=== PATIENT | female | born 1930 | race Caucasian/White ===

== ENCOUNTER 2018-08-31 11:01 | Inpatient (IN) | payer OTHER ==
[~2018-08-31] VITALS: Ht 157.5 cm; Wt 63.5 kg
[2018-08-31 11:02] VITALS: BP 115/54
--- NOTE | 2018-08-31 11:08 | NUR ---
PT'S SON STATES THAT EMT'S ASKED THEM IF HE NOTED DROOPING TO PT;S FACE. SON STATED HE DID NOT NOTICE ANYTHING DIFFRENT. SON STATES SHE DOES LOOK FLUSH IN THE FACE SINCE COMING IN
--- NOTE | 2018-08-31 11:59 | NUR ---
IV PLACED IN PT, WRAPPED IN COBAN. PT WAS ABLE TO REMOVE COBAN AND REMOVED IV BEFORE INTERVENTION
[2018-08-31 12:01] LABS: ABSOLUTE NEUTROPHILS 5.2 thou/uL (1.4-8.2); BASOPHILS 1.1 % (0.0-2.0); HEMATOCRIT 40.9 % (37.0-47.0); HEMOGLOBIN 13.8 gm/dL (12.0-15.0); LYMPHOCYTES 10.7 % (24.0-44.0); MCH 32.1 pg (26.0-34.0); MCHC 33.6 g/dL (28.0-37.0); MCV 95.5 fL (80.0-100.0); MONOCYTES 7.6 % (1.0-8.0); PLATELET COUNT 242 thou/uL (150-400); POLYS 79.6 % (36.0-66.0); RBC 4.29 mil/uL (4.20-5.00); RDW 13.4 % (10.5-14.5); WBC 6.5 thou/uL (4.0-11.0)
[2018-08-31 12:03] LABS: URINE CLARITY CLOUDY; URINE COLOR YELLOW; URINE GLUCOSE-RANDOM* NEGATIVE (Negative); URINE KETONES TRACE (Negative); URINE PROTEIN (DIPSTICK) TRACE (Negative); URINE SPECIFIC GRAVITY > 1.030 (1.005-1.035)
[2018-08-31 12:04] LABS: CASTS None Seen /LPF (None Seen); CRYSTALS None Seen /LPF (None Seen); URINE BILIRUBIN NEGATIVE (Negative); URINE BLOOD 2+ (Negative); URINE LEUKOCYTES-REFLEX 2+ (Negative); URINE NITRITE-REFLEX NEGATIVE (Negative); URINE UROBILINOGEN 0.2 E.U./dl (0.2-1.0)
[2018-08-31 12:05] LABS: BACTERIA-REFLEX 1-9 Few /HPF (None Seen); SQUAMOUS 0-3 Few /LPF (0-3); URINE RBC 3-10 Few /HPF (0-2); URINE WBC-REFLEX >25 Many /HPF (0-5); WBC CLUMPS Many (None Seen)
[2018-08-31 12:07] LABS: CALCIUM 8.2 mg/dL (8.5-10.1); CREATININE 0.6 mg/dL (0.6-1.0); POTASSIUM 3.4 mmol/L (3.5-5.1)
[2018-08-31] MEDS ORDERED: TYLENOL325 MG PO (12:11)
[2018-08-31 12:13] LABS: ALBUMIN 2.8 g/dL (3.4-5.0); TOTAL BILIRUBIN 0.7 mg/dL (<0.1-1.0); TOTAL PROTEIN 7.1 g/dL (6.4-8.2)
[2018-08-31] MEDS ORDERED: AQUAPHOR85 GM TP (12:33)
[2018-08-31] MEDS ORDERED: AAA-MED REC COMPLETE PO (12:35)
[2018-08-31] MEDS ORDERED: VISINE15 ML OPHTHALMIC (12:35)
--- NOTE | 2018-08-31 12:40 | NUR ---
SECOND ATTEMPT TO IV IS SUCESSFUL, PT PULLS IT OUT BEFORE IT CAN BE WRAPS CAN BE APPLIED FOR DETERENT.
[2018-08-31 12:47] VITALS: BP 115/54
[2018-08-31 14:14] VITALS: BP 123/59
[2018-08-31 14:36] VITALS: BP 139/45
--- NOTE | 2018-08-31 18:03 | NUR ---
ASSUMED CARE OF PT AT 14:16. ARRIVED TO ROOM IN STABLE CONDITION VIA CART FROM ED. SON - REMINGTON SOUSA - AT BEDSIDE. ASSESSMENT COMPLETED. DROWSY, BUT AROUSABLE. ORIENTED TO SELF ONLY. HX DEMENTIA. DENIES PAIN AT THE TIME. INCONTINENT. TWO PRESSURE WOUNDS NOTED ON BOTTOM, CLAMP JIG ASSEMBLER CONSULTED, BARRIER CREAM APPLIED, PICTURES DOCUMENTED. NO OTHER SKIN CONCERNS NOTED. PATIENT LIVES WITH SON IN A HOUSE, USUALLY GETS AROUND WITH A WALKER. HE REPORTS THE PAST COUPLE DAYS THE PATIENT HAS BEEN INCREASINGLY CONFUSED. ORIENTED TO ROOM AND CALL LIGHT, HIGH FALL RISK PRECAUTIONS IN PLACE. ALL PATIENT BELONGINGS WERE TAKEN HOME BY THE SON, NO VALUABLES NOTED. PHYSICIAN NOTIFIED OF PT, NEW ORDERES IMPLEMENTED. WILL CONTINUE TO MONITOR.
[2018-08-31 23:38] VITALS: BP 114/42
[2018-09-01 00:28] VITALS: BP 138/92
--- NOTE | 2018-09-01 04:04 | NUR ---
Assumed care of pt at 1900. Pt oriented to self only. 2 pressure wounds on bottom. Barrier cream applied. Q2h turn. Pt becomes impulsive when awake and attempts to take iv out. Pt is incontinent. No c/o pain. Fall precautions in place. Will continue to monitor.
[2018-09-01 05:00] VITALS: BP 144/76
[2018-09-01 05:43] LABS: HEMATOCRIT 37.4 % (37.0-47.0); HEMOGLOBIN 12.6 gm/dL (12.0-15.0); MCH 32.1 pg (26.0-34.0); MCHC 33.8 g/dL (28.0-37.0); MCV 94.9 fL (80.0-100.0); RBC 3.94 mil/uL (4.20-5.00); RDW 13.3 % (10.5-14.5); WBC 5.9 thou/uL (4.0-11.0)
[2018-09-01 05:46] LABS: CALCIUM 8.1 mg/dL (8.5-10.1); CREATININE 0.5 mg/dL (0.6-1.0); POTASSIUM 3.7 mmol/L (3.5-5.1)
[2018-09-01 07:28] VITALS: BP 153/80
--- NOTE | 2018-09-01 10:38 | NUR ---
Assess due to notification of pressure ulcers. Pt with dementia, lives with son, has had increased confusion and debility. Pt not able to answer many questions and son not available for comment. Appears well nourished and did states she likes to eat. Staff indicated ate well this am. Will offer vinny bid, otherwise low nutrition risk.
[2018-09-01 11:05] VITALS: BP 153/80
[2018-09-01 16:38] VITALS: BP 139/58
--- NOTE | 2018-09-01 16:39 | NUR ---
PT ADMITTED RELATED TO UTI, SACRAL WOUNDS. CM REVIEWEDF CHART AND SPOKW WITH CARE TEAM. CM MET WITH PT'S SON REMINGTON THIS AFTERNOON. HE INDICATED THAT PT RESIDES WITH HIM IN A SLAB RANCH STYLE HOUSE WITH NO STEPS TO ENTER AND NO STEPS INSIDE. HE INDICATED THAT PT HAD USED A FWW AND A WC IRON ASSORTER. HE INDICATED THEY ALSO HAVE A BSC. HE INDICATED NO HH HX. SON INDICATED THAT PCP FRANCISCO MARINO RETIRED AND PT IS BEING FOLLOWED BY SOMEONE IN HIS OFFICE BUT THEY HAVEN'T SEEN THEM YET. CM INDICATED THAT PT, OT, AND ST WOULD ASSESS PT HERE AND THERAPY AND CARE TEAM WOULD MAKE RECOMMENDATIONS ON POST DC CARE. CM PROVIDED SNF LIST FOR HIS REVIEW. CM TO FOLLOW INDICATED WITH DC PLANNING.
[2018-09-02 04:35] VITALS: BP 131/75
[2018-09-02 05:42] LABS: HEMATOCRIT 38.3 % (37.0-47.0); HEMOGLOBIN 13.2 gm/dL (12.0-15.0); MCHC 34.6 g/dL (28.0-37.0); MCV 95.5 fL (80.0-100.0); RBC 4.01 mil/uL (4.20-5.00); RDW 13.5 % (10.5-14.5); WBC 5.2 thou/uL (4.0-11.0)
[2018-09-02 05:53] LABS: CALCIUM 8.1 mg/dL (8.5-10.1); CREATININE 0.5 mg/dL (0.6-1.0)
--- NOTE | 2018-09-02 06:39 | NUR ---
Assumed pt care at 1900. Pt A&O to self, mostly pleasant and cooperative with nursing cares. Turn and reposition Q2hr and offloading boots in place. Wound care to buttocks
--- NOTE | 2018-09-02 15:41 | NUR ---
CM FOLLOWED UP WITH PT'S SON THIS DAY AND HE INDICATED HE HAD VISITED TWO FACILITIES [facility] AND HE INDICATED HE DIDN'T LIKE THEM. CM PROVIDED SNF LIST AGAIN AND DISCUSSED OTHER FACILTIES NEAR HIS HOME. HE WAS GOING TO GO VISIT SOME FACILITIES NEAR [facility]. CM TO FOLLOW INDICATED WITH DC PLANNING.
[2018-09-02 21:30] VITALS: BP 117/45
--- NOTE | 2018-09-03 02:49 | NUR ---
Pt A&O to self. Cooperative with nursing cares. Q2hr turn and reposition and offloading. Wound care tx completed per orders. Son visited in evening and discussed plans for rehab upon discharge and concerns regarding pt's ability to "bounce back" to baseline. Education and support provided. Pt currently resting in bed, call light within reach, pt will continue to be monitored.
[2018-09-03 03:00] VITALS: BP 129/57
[2018-09-03 07:29] VITALS: BP 176/81
--- NOTE | 2018-09-03 11:27 | HC ---
[facility] [place] [address] CONSULTATION Name: MIRANAD SOUSA Ike Room #: 430-P [facility] [place] ..#: [id number] Admission: 08/31/18 Attend Phys: Apollo Paul MD Discharge: Date of : 31 Report #: [id number] THIS REPORT FOR: //name// CC: Eber Paul DATE OF SERVICE: 09/01/2018 CHIEF COMPLAINT: Stage 3 gluteal pressure ulceration. HISTORY OF PRESENT ILLNESS: This is an 88-year-old female patient who was admitted to [facility] through the Emergency Department. She has a history of dementia. She had increasing weakness and confusion. She is noted to have 2 pressure ulcerations. I have been asked to see her for wound care evaluation. She has been treated for a UTI. The patient cannot provide any information about herself. ALLERGIES: None. PAST MEDICAL HISTORY: Positive for history of dementia. She currently has urinary tract infection. MEDICATIONS: Include Tylenol, Aquaphor, Visine. SOCIAL HISTORY: Negative for alcohol or tobacco. She lives in a nursing care facility. FAMILY HISTORY: Unknown. REVIEW OF SYSTEMS: Unobtainable due to the patient's dementia. PHYSICAL EXAMINATION: VITAL SIGNS: At this time include pulse 67, respiration of 18, blood pressure 144/76, temperature 98.7. GENERAL: This is a chronically ill-appearing patient who appears to be in minimal distress. HEENT: Head normocephalic. Nose and throat are clear. NECK: Supple. LUNGS: Diminished. HEART: Regular rhythm. ABDOMEN: Soft and nontender. EXTREMITIES: The patient's lower extremities demonstrate she has some flexion contractures at the knees and hips, both of her heels appear a bit boggy, although there is some erythema that is blanchable. She has bilateral stage 3 gluteal pressure ulcerations. [facility] [address] [place] [address] CONSULTATION Name: MIRANDA SOUSA Ike Room #: 430-P [facility]#: [id number] Admission: 08/31/18 Attend Phys: Apollo Paul MD Discharge: Date of : 31 Report #: [id number] LABORATORY DATA: Includes sodium 139, potassium 3.7, chloride 104, CO2 29, BUN 6, creatinine 0.5, glucose of 86, albumin is 2.8. White blood cell count is 5.2, hemoglobin is 13.2. Urinalysis is positive for white blood cells and red blood cells consistent with urinary tract infection. CLINICAL IMPRESSION: 1. Stage 3 pressure ulcerations, bilateral buttocks. 2. Dementia. 3. Urinary tract infection. 4. Concern/risk of pressure ulceration on heels. Heels are boggy, although nothing is open and there is blanchable erythema at present. 5. Flexion contractures lower extremities. 6. Moderate protein-calorie malnutrition. RECOMMENDATIONS: At this point in time, we recommend a moisture barrier cream to the gluteal ulceration. She will need a low air loss mattress and q. 2 hour turning and repositioning. Recommend Prevalon boots to both lower extremities. She will need aggressive nutritional support to maximize wound healing. I appreciate being asked to see her in consultation. <ELECTRONICALLY SIGNED> By: Eber Gann MD 09/03/18 [id number] Eber Gann MD /nt
--- NOTE | 2018-09-03 15:35 | NUR ---
WOUND FOLLOW UP: PT. WAS SEEN TODAY BY DR. COHEN AND MYSELF. PT. WOUNDS ARE CLINICALLY BETTER AT THIS TIME. RECOMMENDATIONS: CONTINUE WITH CURRENT PLAN OF CARE. PT. AND STAFF NURSE WERE INSTRUCTED ON PLAN OF CARE.
[2018-09-03 16:53] VITALS: BP 131/69
--- NOTE | 2018-09-03 18:15 | NUR ---
PT ASSESSED AT START OF SHIFT. PT VERY CONFUSED AND CRIES OUT WHEN SHE IS REPOSITIONED. Z-GUARD TO BOTTOM AFTER INCONTINENCE. MODERATED SOFT, BM. ATE FAIRLY WELL WHEN FED AT [facility]. SON HERE FOR A WHILE TO VISIT. IV INFILTRATED AND WAS RESTARTED BY IV AFTER ONE UNSUCCESSFUL ATTEMPT PER RN.
[2018-09-03 19:42] VITALS: BP 128/60
--- NOTE | 2018-09-04 04:03 | NUR ---
Assumed care of pt at 1900. Pt is confused and screams out during repositions. Q2h repositions. Incontinent of b&b. Small bm overnight. Resting comfortably and not c/o when not being repositioned. Pt son states he has 2 skilled facilities in mind for pt to be discharged to, but will go and visit them today, and then decide. 2 buttock wounds still present. Fall precautions in place. Will continue to monitor.
[2018-09-04 04:46] VITALS: BP 142/64
[2018-09-04 08:00] VITALS: BP 140/50
--- NOTE | 2018-09-04 16:55 | NUR ---
CM ATTEMPTED PHONE CALLS TO SON THIS DAY TO ASK WHICH FACILITIES HE WANTS REFERRALS SENT TO. CM REVEIVED NO RESPONSE.
[2018-09-05 05:00] VITALS: BP 127/56
--- NOTE | 2018-09-05 05:38 | NUR ---
Patient demented. Bed rest; denied pain; Son showed concein of patient;s UTI condition, voicing that he wanted the mom to be in hospital for a longer time until the infection was totally cleared up; VSS, afebrile. lab reviewed, will keep monitoring.
[2018-09-05 07:10] VITALS: BP 128/47
[2018-09-05 16:15] VITALS: BP 129/56
[2018-09-05 21:00] VITALS: BP 98/25
--- NOTE | 2018-09-06 00:43 | NUR ---
RADIOLOGY CALLED UP TO THE UNIT STATING THAT PT'S SON REFUSED FOR PT TO GET CXR DONE BC SHE WAS ASLEEP,THIS NURSE TALKED TO THE PT'S SON AND HE STATED THAT HE DIDN'T KNOW THAT STAFF WAS FROM RADIOLOGY SO HE AGREED FOR THE TEST TO BE PERFORMED.REPOSITIONED PT WHILE IN BED,PT SCREAMS OUT LOUD WITH POSITION CHANGES,TYLENOL ADMINISTERED FOR GENERALIZED PAIN.PT COMFORTABLE AND RESTING ON HER BED AT THIS TIME.PRESSURE WOUND ON HER SACRUM CLEANED,Z GUARD APPLIED ORDERED.FALL PRECAUTIIONS IN PLACE,CALL LIGHT WITHIN TREACH.
[2018-09-06 05:00] VITALS: BP 118/58
[2018-09-06 07:11] VITALS: BP 116/45
[2018-09-06 09:59] LABS: HEMATOCRIT 37.6 % (37.0-47.0); HEMOGLOBIN 12.8 gm/dL (12.0-15.0); MCH 32.6 pg (26.0-34.0); MCV 95.7 fL (80.0-100.0); RBC 3.93 mil/uL (4.20-5.00); RDW 13.5 % (10.5-14.5); WBC 5.4 thou/uL (4.0-11.0)
[2018-09-06 10:07] LABS: CALCIUM 8.2 mg/dL (8.5-10.1); CREATININE 0.6 mg/dL (0.6-1.0); MAGNESIUM 2.2 mg/dL (1.8-2.4); POTASSIUM 3.4 mmol/L (3.5-5.1)
[2018-09-06 15:45] VITALS: BP 137/61
[2018-09-06 20:40] VITALS: BP 134/63
[2018-09-07 03:45] VITALS: BP 122/66
[2018-09-07 03:48] LABS: CALCIUM 8.1 mg/dL (8.5-10.1); CREATININE 0.5 mg/dL (0.6-1.0); MAGNESIUM 2.3 mg/dL (1.8-2.4); POTASSIUM 3.6 mmol/L (3.5-5.1)
[2018-09-07 03:58] LABS: HEMATOCRIT 34.9 % (37.0-47.0); HEMOGLOBIN 11.6 gm/dL (12.0-15.0); MCH 32.1 pg (26.0-34.0); MCHC 33.4 g/dL (28.0-37.0); MCV 96.2 fL (80.0-100.0); RBC 3.63 mil/uL (4.20-5.00); RDW 13.4 % (10.5-14.5); WBC 6.4 thou/uL (4.0-11.0)
--- NOTE | 2018-09-07 07:48 | NUR ---
PT HAD A LOOSE BM THIS SHIFT X1.REPOSITIONED WHILE IN BED,SCREAMS AND CURSES WITH POSITION CHANGES.ESTRELLITA CARE WITH CHANGES.PT ALERT TO SELF.REPORT TO AM NURSE.
[2018-09-07 07:50] VITALS: BP 118/66
--- NOTE | 2018-09-07 12:12 | NUR ---
Following for d/c planning. Called pt's son and left message. Will await return call re: choice of d/c.
[2018-09-07 16:15] VITALS: BP 123/62
--- NOTE | 2018-09-07 17:26 | NUR ---
PT ASSESSED AT START OF SHIFT. PT CALM AND COOPERATIVE BUT BECOMES FRIGHTENED WHEN REPOSITIONED. NEEDS TO BE FED AND EATS FAIR. MEDS NEED TO BE CRUSHED OR SHE TAKES THEM OUT OF HER MOUTH. TURNED Q 2HRS. Z-GUARD TO BOTTOM AFTER URINATION.
[2018-09-07 19:36] VITALS: BP 114/58
[2018-09-08 04:24] VITALS: BP 117/72
[2018-09-08 05:38] LABS: HEMATOCRIT 35.8 % (37.0-47.0); HEMOGLOBIN 12.2 gm/dL (12.0-15.0); MCH 32.9 pg (26.0-34.0); MCHC 34.1 g/dL (28.0-37.0); MCV 96.7 fL (80.0-100.0); RBC 3.7 mil/uL (4.20-5.00); RDW 13.3 % (10.5-14.5); WBC 5.7 thou/uL (4.0-11.0)
[2018-09-08 05:46] LABS: CALCIUM 8.1 mg/dL (8.5-10.1); CREATININE 0.5 mg/dL (0.6-1.0); MAGNESIUM 2.2 mg/dL (1.8-2.4)
[2018-09-08 07:15] VITALS: BP 114/51
[2018-09-08 07:34] VITALS: BP 114/51
--- NOTE | 2018-09-08 09:37 | NUR ---
WOUND FOLLOW UP: PT. WAS SEEN TODAY BY DR. RAMIREZ AND MYSELF. PT. WOUNDS ARE STABLE AT THIS TIME AND RESPONDING WELL TO CURRENT THERAPY. RECOMMENDATIONS: CONTINUE WITH CURRENT PLAN OF CARE. PT. AND STAFF NURSE WERE INSTRUCTED ON PLAN OF CARE.
--- NOTE | 2018-09-08 10:44 | NUR ---
1005, PT RECEIVED A COMPLETE BATH. INSTRUCTOR AND STUDENT NURSE NOTICED REDNESS UNDER BOTH BREAST TISSUE. THE IRRITATED AREAS WERE CLEANED AND BARRIER CREAM WAS APPLIED. THE PT DID NOT C/O DISCOMFORT TO THOSE AREAS.
[2018-09-08 11:58] VITALS: BP 132/51
--- NOTE | 2018-09-08 14:13 | NUR ---
MET WITH PT'S SON REMINGTON AND ALERTED HIM THAT [facility] IS STILL FULL AND THAT DRS ARE SAYING PT IS MEDICALLY READY TO TRANSFER TO REHAB. DISCUSSED [facility] AND SON SAYS HE WILL GO TOUR THERE THIS AFTERNOON. GAVE SON MY NUMBER TO CALL ME ONCE HE HAS TOURED.
--- NOTE | 2018-09-08 15:18 | NUR ---
PT IS A 88 YR OLD FEMALE THAT WAS ADMITTED FOR A UTI, SACRAL DECUBITUS ULCERS, DEMENTIA, DYSPHAGIA, AND CONSTIPATION. PT HAS BEEN ORIENT WITH STAFF, BUT HAS IMPULSIVE BEHAVIOR OF SCREAMING WITH ANY MOVEMENT OF HER BODY. 0910, PT ATE 75% OF BREAKFAST THAT CONSISTED OF WAFFLES AND EGGS. PT REFUSED TO DRINK ANY BEVERAGE WITH BREAKFAST. PT DISPLAYED SIGNS OF DYSPHAGIA WHILE EATING. 09, WOUND CARE ASSESSED THE PT'S ULCERS ON THE BOTH BUTTOCKS; L. BUTTOCK HAS HEALED BUT RIGHT BUTTOCK IS STILL OPEN. THE ULCER AND PERINEUM WERE CLEANED AND BARRIER CREAM WAS APPLIED. 1208, PT C/O LBP AT 5 OF 10 ON THE PAIN SCALE. HYDROCODONE WAS ADMINISTERED TO THE PT FOR PAIN. PT HAS BEEN UNRINARY INCONTINENT, BUT HAS NOT HAD A BM. 1230, PT'S SKIN, UNDER BOTH BREAST TISSUE, DISPLAYED REDNESS. THE AREAS WERE CLEANED AND BARRIER CREAM WAS APPLIED BY INSTRUCTOR AND STUDENT NURSE.
--- NOTE | 2018-09-08 15:29 | NUR ---
I have reviewed and concur with student documentation.
[2018-09-08 15:34] VITALS: BP 114/51
--- NOTE | 2018-09-08 16:27 | NUR ---
FAXED REFERRAL TO [facility] LEFT [facility] WITH ERENDIRA IN ADM. THAT REFERRAL FAXED DCP WILL F/U IN THE AM.
--- NOTE | 2018-09-08 18:42 | NUR ---
PT ASSESSED AT START OF SHIFT. PT DOING SOME BETTER SINCE ON DEPAKOTE. MOODS MORE STABLE. EATING WELL WHEN FED. WOUNDS ON BOTTOM IMPROVING W/ Z-GUARD. SON LOOKING FOR [facility] FOR TRANSFER.
[2018-09-08 20:00] VITALS: BP 106/30
--- NOTE | 2018-09-09 04:24 | NUR ---
PT Q2HR TURN, SCREAMS WITH CARES. TAKES MEDS WELL WITH APPLESAUCE. DENIES PAIN. AFEBRILE.
[2018-09-09 05:00] VITALS: BP 104/44
[2018-09-09 05:33] LABS: HEMATOCRIT 36.2 % (37.0-47.0); HEMOGLOBIN 12.2 gm/dL (12.0-15.0); MCH 32.1 pg (26.0-34.0); MCHC 33.6 g/dL (28.0-37.0); MCV 95.6 fL (80.0-100.0); RBC 3.79 mil/uL (4.20-5.00); RDW 13.8 % (10.5-14.5); WBC 5.5 thou/uL (4.0-11.0)
[2018-09-09 05:46] LABS: CALCIUM 8.1 mg/dL (8.5-10.1); CREATININE 0.5 mg/dL (0.6-1.0); MAGNESIUM 2.3 mg/dL (1.8-2.4); POTASSIUM 4.1 mmol/L (3.5-5.1)
[2018-09-09 07:54] VITALS: BP 121/64
--- NOTE | 2018-09-09 11:18 | NUR ---
Followup: wound care indicates sacral ulcer stable. No new wt. tolerates meals and fluids. Receives vinny. No new nutrition interventions. Awaiting placement/dementia. Low nutrition risk
--- NOTE | 2018-09-09 13:54 | NUR ---
WOUND FOLLOW UP: PT. WAS SEEN TODAY BY DR. ENGLAND AND MYSELF. PT. WOUND TO HER LEFT BUTTOCK HAS RESOLVED AND THE RIGHT BUTTOCK IS CLINICALLY BETTER AT THIS TIME. RECOMMENDATIONS: CONTINUE WITH CURRENT PLAN OF CARE. PT. AND STAFF NURSE WERE INSTRUCTED ON PLAN OF CARE.
--- NOTE | 2018-09-09 14:44 | NUR ---
FAXED REFERRAL TO [facility] SPOKE WITH ALPESH WARE AND SHE RECEIVED REFERRAL AND WILL REVIEW. PT. IS DC READY TODAY. DCP TO FOLLOW.
--- NOTE | 2018-09-09 14:52 | NUR ---
S/W SON REMINGTON BY PHONE AND HE TELLS ME HE TOURED [facility] YESTERDAY AND HE S/W HERMILA AND HERMILA IN ADMISSIONS WAS SUPPOSED TO CALL ME. I HAVE NOT HEARD FROM [facility]. ASKED DC ACCOUNT INSTALLER TO FAX REFERRAL TO [facility] AND PT IS READY TODAY.
[2018-09-09] MEDS ORDERED: DEPAKOTE SPRIN125 MG PO (15:02)
--- NOTE | 2018-09-09 17:10 | NUR ---
PT TO DISCHARGE TO [facility] THIS NURSE GAVE REPORT TO DEBORAH NURSE THAT WAS TO ADMIT PATIENT. WOUND TO RIGHT BUTTOCK MEASURED AND PICTURES TAKEN. IV ACSESS DCD. ALL BELONGINGS PACKED TO BE SENT WITH PATIENT. SON AT BEDSIDE PT IS EATING DINNER AT THIS TIME.
--- NOTE | 2018-09-09 18:08 | NUR ---
TRANSPORTATION SERVICE HERE TO TRANSPORT PATIENT TO [facility]. ASSIST XS 4 TO [facility].
== END 2018-09-09 18:00 | DRG 592 ==
LOC: ER 11:01 → EROBS 12:49 → 4E 12:49
PROVIDERS: Emergency Medicine; Internal Medicine; ADMIT Hospitalist
DX: L89.323 Pressure ulcer of left buttock, stage 3 (principal); G92 Toxic encephalopathy; N39.0 Urinary tract infection, site not specified; E44.0 Moderate protein-calorie malnutrition; R13.10 Dysphagia, unspecified; L89.313 Pressure ulcer of right buttock, stage 3; B95.1 Streptococcus, group B, as the cause of diseases classified elsewhere; J30.9 Allergic rhinitis, unspecified; K59.00 Constipation, unspecified; E87.6 Hypokalemia; L89.153 Pressure ulcer of sacral region, stage 3; F03.90 Unspecified dementia, unspecified severity, without behavioral disturbance, psychotic disturbance, mood disturbance, and anxiety; Z79.899 Other long term (current) drug therapy
CPT/HCPCS: 10084